=== PATIENT | male | born 1960 | race Caucasian/White ===

== ENCOUNTER 2016-09-29 07:39 | Emergency (ER) | payer OTHER ==
--- NOTE | 2016-09-29 09:03 | RAD ---
INDICATION: Progressive left heel pain. TECHNIQUE: 3 views of the left foot were obtained. FINDINGS: The bones are in normal alignment. No fracture is seen. There is minimal spurring and calcification at the insertion of the distal Achilles tendon on the posterior calcaneus. There is a tiny spur arising from the inferior calcaneus. Joint spaces appear maintained. No significant arthritic change is seen. IMPRESSION: SMALL CALCANEAL SPURS.
[2016-09-29 10:08] VITALS: BP 132/82
--- NOTE | 2016-09-29 14:27 | UC ---
Caesar Tipton Salem, scribed for Aurelia Rubin MD on 09/29/16 at 0840 . Lower Extremity/Ankle HPI - HPI Summary HPI Summary: Patient is a 56 y/o M who presents to the with left heel pain since 3 days ago. Pt states that he woke up with increased pain this morning. Pt denies any injuries or trauma. He states that he works on his feet a lot and typically wears firm boots. He also states that he hikes and takes long walks with his on flat ground while wearing a 35lb weighted vest. He has no other complaints. Patients medication reviewed this visit. - History of Current Complaint Chief Complaint: UCLowerExtremity Stated Complaint: HEEL PAIN Time Seen by Provider: 09/29/16 08:40 Hx Obtained From: Patient Onset/Duration: Gradual Onset, Lasting Days, Still Present Severity Initially: Moderate Severity Currently: Moderate Pain Intensity: 8 Pain Scale Used: 0-10 Numeric Aggravating Factor(s): Ambulation Alleviating Factor(s): Rest Able to Bear Weight: Yes - Allergies/Home Medications Allergies/Adverse Reactions: Allergies Allergy/AdvReac Type Severity Reaction Status Date / Time No Known Allergies Allergy Verified 07/29/14 19:20 Home Medications: Home Medications [id number] [Excedrin Extra Strength 250-250-65 mg] 2 tab PO PRN 09/29/16 [History] PMH/Surg Hx/FS Hx/Imm Hx Previously Healthy: Yes - Surgical History Surgical History: Yes Surgery Procedure, Year, and Place: right bicep tendon 2011, left leg vein 2004 - Family History Known Family History: Positive: Cardiac Disease - Both parents., Hypertension - Both parents. - Social History Alcohol Use: Occasionally Substance Use Type: None Smoking Status (MU): Never Smoked Tobacco - Immunization History Most Recent Tetanus Shot: unknown Review of Systems Constitutional: Negative Musculoskeletal: Other: - See HPI. All Other Systems Reviewed And Are Negative: Yes Physical Exam Triage Information Reviewed: Yes Appearance: Well-Nourished Vital Signs: Initial Vital Signs Temp 99.6 F 09/29/16 07:47 Pulse 75 09/29/16 07:47 Resp 18 09/29/16 07:47 BP 133/80 09/29/16 07:47 Pulse Ox 97 09/29/16 07:47 Vital Signs Reviewed: Yes Eye Exam: Normal ENT Exam: Normal Neck exam: Normal Neck: Positive: No Lymphadenopathy Respiratory Exam: Normal Respiratory: Positive: Chest non-tender, Lungs clear, Normal breath sounds, No respiratory distress Cardiovascular Exam: Normal Cardiovascular: Positive: RRR, No Murmur, Pulses Normal, Brisk Capillary Refill Abdominal Exam: Normal Abdomen Description: Positive: Nontender, No Organomegaly, Soft Bowel Sounds: Positive: Present Musculoskeletal Exam: Normal Musculoskeletal: Positive: Strength Intact Neurological Exam: Normal - nonfocal, grossly intact Psychological Exam: Normal - conversing easily and appropriately Skin Exam: Normal - no visible or reported rash Diagnostics - Radiology LEFT FOOT XR Radiology Interpretation Completed By: Radiologist - IMPRESSION: SMALL CALCANEAL SPURS. Lower Extremity Course/Dx - Course Course Of Treatment: No new problems in CCC. D/w pt - xray results, and need for f/u. He will f/u with pcp and podiatry (will f/u with people greeter in [place] or [place], he will check with pcp). CAM boot today, but likely will need further orthotics. Some evidence of BLE venous insuff with mild edema, will elevate feet (rob painful foot) and recommend mild compression. dp/pt bilat 2+ equal. Work note written. Questions answered to the best of my ability. - Differential Dx/Diagnosis Provider Diagnoses: Symptomatic heel spur Left foot Discharge - Discharge Plan Condition: Stable Disposition: HOME Patient Education Materials: Heel Spur (ED) Forms: *Work Release Referrals: Pako Gaines DO [Primary Care Provider] - Additional Instructions: Use moisturizer and above the calf mild compression socks for men in both legs as discussed. Also as discussed, it is okay to go on walks, but keep your leg elevated above your heart frequently throughout the day. Follow up with a Tracing Lathe Set Up Operator, ideally in the next couple weeks. Please follow up with foot doctor in 1-2 weeks. Seek medical attention for worse or new problems in the meantime. Over the counter ibuprofen per packaging instructions, as needed for pain / inflammation - but check with Dr. Rosa hernandez. Boot as needed for comfort. The documentation as recorded by the Caesar noonan Salem accurately reflects the service I personally performed and the decisions made by me, Aurelia Rubin MD.
== END 2016-09-29 10:17 | disposition home or self-care (01) ==
LOC: UCEAST 07:39
DX: M77.32 Calcaneal spur, left foot (principal); Z79.82 Long term (current) use of aspirin
CPT/HCPCS: 99213; G0463

== ENCOUNTER 2018-02-24 09:50 | Emergency (ER) | payer OTHER ==
[2018-02-24 11:35] VITALS: BP 121/69
[2018-02-24] MEDS ORDERED: Ibuprofen ADULT LIQ* 600 MG/30 ML UDC PO ONE (11:36)
--- NOTE | 2018-02-24 11:41 | UC ---
UC General HPI - HPI Summary HPI Summary: 2 DAY HX SORE THROAT, COUGH, ADAMS AND BODYACHES. NO CP OR SOB. NO HX ASTHMA, COPD OR SMOKING. FLU SHOT 2 WEEKS AGO. - History of Current Complaint Chief Complaint: UCGeneralIllness Stated Complaint: COUGH,ADAMS,ST Time Seen by Provider: 02/24/18 11:36 Hx Obtained From: Patient Onset/Duration: Gradual Onset Timing: Constant Pain Intensity: 4 Associated Signs & Symptoms: Positive: Cough, Fever - Allergy/Home Medications Allergies/Adverse Reactions: Allergies Allergy/AdvReac Type Severity Reaction Status Date / Time No Known Allergies Allergy Verified 02/24/18 11:35 Home Medications: Home Medications Hydrochlorothiazide TAB* [Hydrodiuril TAB*] 25 mg PO DAILY 02/24/18 [History Confirmed 02/24/18] PMH/Surg Hx/FS Hx/Imm Hx Cardiovascular History: Hypertension GI/ History: Gastroesophageal Reflux - Surgical History Surgical History: Yes Surgery Procedure, Year, and Place: right bicep tendon 2011, left leg vein 2004 - Family History Known Family History: Positive: Cardiac Disease - Both parents., Hypertension - Both parents. - Social History Lives: With Family Alcohol Use: Occasionally Alcohol Amount: only during summer Substance Use Type: None Smoking Status (MU): Never Smoked Tobacco - Immunization History Most Recent Tetanus Shot: unknown Vaccination Up to Date: Yes Review of Systems All Other Systems Reviewed And Are Negative: Yes Constitutional: Positive: Fever, Chills Skin: Positive: Negative Eyes: Positive: Negative ENT: Positive: Sore Throat Respiratory: Positive: Cough Cardiovascular: Positive: Negative Gastrointestinal: Positive: Negative Genitourinary: Positive: Negative Motor: Positive: Negative Neurovascular: Positive: Negative Musculoskeletal: Positive: Myalgia Neurological: Positive: Headache Psychological: Positive: Negative Is Patient Immunocompromised?: No Physical Exam Triage Information Reviewed: Yes Appearance: Well-Appearing Vital Signs: Initial Vital Signs Temp 101.9 F 02/24/18 11:31 Pulse 93 02/24/18 11:31 Resp 17 02/24/18 11:31 BP 121/69 02/24/18 11:31 Pulse Ox 97 02/24/18 11:31 Eyes: Positive: Conjunctiva Clear ENT: Positive: Pharyngeal erythema - SLIGHT, TMs normal. Negative: Nasal congestion, Nasal drainage Neck: Positive: Supple, Nontender, No Lymphadenopathy Respiratory: Positive: No respiratory distress, Decreased breath sounds - SLIGHT , Other: - NPC Cardiovascular: Positive: RRR, No Murmur Abdomen Description: Positive: Nontender, No Organomegaly, Soft. Negative: CVA Tenderness (R), CVA Tenderness (L), Distended Bowel Sounds: Positive: Present Musculoskeletal: Positive: ROM Intact Neurological: Positive: Alert Psychological: Positive: Age Appropriate Behavior Skin Exam: Normal Diagnostics - Laboratory Diagnostic Studies Completed/Ordered: RAPID STREP=NEG - Radiology No standard instances Radiology Interpretation Completed By: Radiologist - CXR=IMPRESSION: LEFT UPPER LOBE CONSOLIDATION. RECOMMEND FOLLOW-UP UNTIL RESOLUTION TO EXCLUDE UNDERLYING PULMONARY PARENCHYMAL PATHOLOGY. Course/Dx - Course Course Of Treatment: infiltrate on cxr. non toxic, not hypoxic. ok for out pt tx. - Differential Dx - Multi-Symptom Provider Diagnoses: pneumonia Discharge - Sign-Out/Discharge Documenting (check all that apply): Patient Departure All imaging exams completed and their final reports reviewed: Yes - Discharge Plan Condition: Stable Disposition: HOME Prescriptions: DOXYcycline CAP(*) [DOXYcycline 100MG CAP(*)] 100 mg PO BID 10 Days #20 cap Patient Education Materials: Community Acquired Pneumonia (ED) Forms: *Work Release Referrals: Star Casillas DO [Primary Care Provider] - 7 Days Additional Instructions: YOUR MUST FOLLOW UP WITH DR CASILLAS TO ENSURE RESOLUTION TO EXCLUDE ANY UNDERLYING LUNG PATHOLOGY CONTRIBUTING TO THIS ILLNESS. - Billing Disposition and Condition Condition: STABLE Disposition: Home - Attestation Statements Provider Attestation: Per institutional requirements, I have reviewed the chart, however, I was not consulted specifically or made aware of this patient by the midlevel provider. I did not personally evaluate, interact with , or disposition this patient.
== END 2018-02-24 12:36 | disposition home or self-care (01) ==
LOC: UCCORT 09:50
DX: J18.9 Pneumonia, unspecified organism (principal); J02.9 Acute pharyngitis, unspecified; R51 Headache; R52 Pain, unspecified; I10 Essential (primary) hypertension; Z79.899 Other long term (current) drug therapy
CPT/HCPCS: 71046; 87651; 99212; A9270-GY; G0463